=== PATIENT | male | born 1975 | race Hispanic/Latino ===

== ENCOUNTER 2018-05-23 20:51 | Emergency (ER) | payer SELFPAY ==
--- NOTE | 2018-05-23 21:24 | ER ---
Nurse's Notes [facility] Name: Randal Chavez Age: 43 yrs Sex: Male : 1975 Arrival Date: 05/23/2018 Time: 20:52 Bed 15 Private MD: Diagnosis: Low back pain Presentation: 05/23 21:03 Presenting complaint: Patient states: Back pain for the past 3 days. Patient denies any aj1 injury or strenuous activity in the past month. Denies dysuria, urinary frequency. Transition of care: patient was not received from another setting of care. Onset of symptoms was May 20, 2018. Risk Assessment: Do you want to hurt yourself or someone else? Patient reports no desire to harm self or others. Initial Sepsis Screen: Does the patient meet any 2 criteria? No. Patient's initial sepsis screen is negative. Does the patient have a suspected source of infection? No. Patient's initial sepsis screen is negative. Care prior to arrival: None. 21:03 Method Of Arrival: Ambulatory aj 21:03 Acuity: REAL 4 aj1 Triage Assessment: 21:05 General: Appears in no apparent distress. comfortable, Behavior is calm, cooperative, aj1 appropriate for age. Pain: Complains of pain in back Pain currently is 6 out of 10 on a pain scale. Neuro: Level of Consciousness is awake, alert, obeys commands. Cardiovascular: Patient's skin is warm and dry. Respiratory: Airway is patent Respiratory effort is even, unlabored, Respiratory pattern is regular, symmetrical. Musculoskeletal: Range of motion: intact in all extremities. Historical: - Allergies: 21:05 No Known Allergies; aj1 - Home Meds: 21:05 None [Active]; aj1 - PMHx: 21:05 Hypertension; Asthma; aj1 - PSHx: 21:05 None; aj1 - Immunization history:: Flu vaccine is not up to date. - Social history:: Smoking status: Patient/guardian denies using tobacco, Patient/guardian denies using alcohol, street drugs, The patient lives with family. - Ebola Screening: : Patient denies travel to an Ebola-affected area in the 21 days before illness onset. - Family history:: not pertinent. - Hospitalizations: : No recent hospitalization is reported. Screenin:25 Abuse screen: Denies threats or abuse. Nutritional screening: No deficits noted. jb4 Tuberculosis screening: No symptoms or risk factors identified. Fall Risk None identified. Assessment: 21:25 General: Appears in no apparent distress. uncomfortable, Behavior is calm, cooperative, jb4 appropriate for age. Pain: Complains of pain in right low back Pain does not radiate. Pain currently is 8 out of 10 on a pain scale. Quality of pain is described as burning, stabbing, Pain began 2-3 days ago. Neuro: Level of Consciousness is awake, alert, obeys commands, Oriented to person, place, time, situation. Cardiovascular: Patient's skin is warm and dry. Respiratory: Airway is patent Respiratory effort is even, unlabored, Respiratory pattern is regular, symmetrical. GI: No signs and/or symptoms were reported involving the gastrointestinal system. : No signs and/or symptoms were reported regarding the genitourinary system. EENT: No signs and/or symptoms were reported regarding the EENT system. Derm: Skin is intact, Skin is pink, warm \T\ dry. Musculoskeletal: Circulation, motion, and sensation intact. Vital Signs: 21:05 BP 189 / 100; Pulse 90; Resp 18; Temp 98.0; Pulse Ox 97% on R/A; Weight 120.2 kg (R); aj1 Height 5 ft. 7 in. (170.18 cm) (R); Pain 6/10; 21:47 BP 176 / 100; Pulse 86; Resp 18; Pulse Ox 100% on R/A; jb4 21:05 Body Mass Index 41.50 (120.20 kg, 170.18 cm) aj1 ED Course: 20:52 Patient arrived in ED. al2 21:05 Triage completed. aj1 21:05 Arm band placed on Patient placed in an exam room. aj1 21:05 Patient has correct armband on for positive identification. Bed in low position. Call jb4 light in reach. Side rails up X 1. Pulse ox on. NIBP on. 21:10 Batsheva Low MD is Attending Physician. ma2 21:18 Fabio Wei, RAYA is Primary Nurse. jb4 21:48 No provider procedures requiring assistance completed. Patient did not have IV access jb4 during this emergency room visit. Administered Medications: 21:49 Drug: TORadol 60 mg Route: IM; Site: left gluteus; jb4 21:51 Follow up: Response: No adverse reaction jb4 21:50 Drug: Valium 10 mg {Note: Given IM in right glutues per providers orders..} Route: IVP; jb4 Site: Other; 21:50 Follow up: Response: No adverse reaction jb4 Outcome: 21:23 Discharge ordered by MD. sheikh 21:48 Discharged to home ambulatory. jb4 21:48 Condition: stable 21:48 Discharge instructions given to patient, Instructed on discharge instructions, follow up and referral plans. medication usage, Demonstrated understanding of instructions, follow-up care, medications, Prescriptions given X 2. 21:51 Patient left the ED. jb4 Signatures: Aster Pittman RN RN aj1 Fabio Wei RN RN jb4 Simran Erazo2 Batsheva Low MD MD ma2 Corrections: (The following items were deleted from the chart) 21:50 21:49 TORadol 60 mg IM in left vastus lateralis jb4 jb4
--- NOTE | 2018-05-23 21:24 | EDPHYS ---
Physician Documentation [facility] Name: Randal Chavez Age: 43 yrs Sex: Male : 1975 Arrival Date: 05/23/2018 Time: 20:52 Bed 15 Private MD: ED Physician Batsheva Low HPI: 05/23 21:20 This 43 yrs old Male presents to ER via Ambulatory with complaints of Back ma2 Pain. 21:20 The patient presents with pain that is acute. The symptoms are located in the low back. ma2 Onset: The symptoms/episode began/occurred gradually, 3 day(s) ago. The pain does not radiate. Associated signs and symptoms: Pertinent negatives: abdominal pain, constipation, dysuria, fever, hematuria, incontinence, numbness, tingling, urinary retention, vomiting, weakness. Modifying factors: The patient symptoms are alleviated by nothing, the patient symptoms are aggravated by coughing, movement. Severity of symptoms: At their worst the symptoms were moderate, in the emergency department the symptoms are unchanged. The patient has not experienced similar symptoms in the past. no trauma no fever or weakness or urinary incontinence . Historical: - Allergies: 21:05 No Known Allergies; aj1 - Home Meds: 21:05 None [Active]; aj1 - PMHx: 21:05 Hypertension; Asthma; aj1 - PSHx: 21:05 None; aj1 - Immunization history:: Flu vaccine is not up to date. - Social history:: Smoking status: Patient/guardian denies using tobacco, Patient/guardian denies using alcohol, street drugs, The patient lives with family. - Ebola Screening: : Patient denies travel to an Ebola-affected area in the 21 days before illness onset. - Family history:: not pertinent. - Hospitalizations: : No recent hospitalization is reported. ROS: 21:20 Constitutional: Negative for fever, chills, and weight loss, Cardiovascular: Negative ma2 for chest pain, palpitations, and edema, Respiratory: Negative for shortness of breath, cough, wheezing, and pleuritic chest pain, Abdomen/GI: Negative for abdominal pain, nausea, diarrhea, and constipation, Back: Negative for injury and pain, MS/Extremity: Negative for injury and deformity. 21:20 Back: Positive for pain with movement, Negative for injury or acute deformity, decreased range of motion, pain at rest, radiated pain, acute changes. 21:20 All other systems are negative. Exam: 21:20 Constitutional: This is a well developed, well nourished patient who is awake, alert, ma2 and in no acute distress. Chest/axilla: Normal chest wall appearance and motion. Nontender with no deformity. No lesions are appreciated. Cardiovascular: Regular rate and rhythm with a normal S1 and S2. No gallops, murmurs, or rubs. Normal PMI, no JVD. No pulse deficits. Respiratory: Lungs have equal breath sounds bilaterally, clear to auscultation and percussion. No rales, rhonchi or wheezes noted. No increased work of breathing, no retractions or nasal flaring. Abdomen/GI: Soft, non-tender, with normal bowel sounds. No distension or tympany. No guarding or rebound. No evidence of tenderness throughout. Back: No spinal tenderness. No costovertebral tenderness. Full range of motion. Skin: Warm, dry with normal turgor. Normal color with no rashes, no lesions, and no evidence of cellulitis. MS/ Extremity: Pulses equal, no cyanosis. Neurovascular intact. Full, normal range of motion. Neuro: Awake and alert, GCS 15, oriented to person, place, time, and situation. Cranial nerves II-XII grossly intact. Motor strength 5/5 in all extremities. Sensory grossly intact. Cerebellar exam normal. Normal gait. Vital Signs: 21:05 BP 189 / 100; Pulse 90; Resp 18; Temp 98.0; Pulse Ox 97% on R/A; Weight 120.2 kg (R); aj1 Height 5 ft. 7 in. (170.18 cm) (R); Pain 6/10; 21:47 BP 176 / 100; Pulse 86; Resp 18; Pulse Ox 100% on R/A; jb4 21:05 Body Mass Index 41.50 (120.20 kg, 170.18 cm) aj1 MDM: 21:10 Patient medically screened. ma2 21:20 Differential diagnosis: Ligament Injury Osteoarthritis sprain, disc prolapse. Data ma2 reviewed: vital signs, nurses notes. Response to treatment: the patient's symptoms have markedly improved after treatment. Administered Medications: 21:49 Drug: TORadol 60 mg Route: IM; Site: left gluteus; jb4 21:51 Follow up: Response: No adverse reaction 4 21:50 Drug: Valium 10 mg {Note: Given IM in right glutues per providers orders..} Route: IVP; jb4 Site: Other; 21:50 Follow up: Response: No adverse reaction 4 Disposition: 05/23/18 21:23 Discharged to Home. Impression: Low back pain. - Condition is Stable. - Discharge Instructions: Back Pain, Adult. - Prescriptions for Tylenol- Codeine #3 300-30 mg Oral Tablet - take 2 tablet by ORAL route every 6 hours As needed; 30 tablet. Cyclobenzaprine 10 mg Oral Tablet - take 1 tablet by ORAL route every 8 hours As needed; 30 tablet. - Medication Reconciliation Form, Thank You Letter, Antibiotic Education, Prescription Opioid Use form. - Follow up: Private Physician; When: Tomorrow; Reason: Continuance of care. Signatures: Aster Pittman RN RN aj1 Fabio Wei RN RN jb4 Batsheva Low MD MD ma2 Corrections: (The following items were deleted from the chart) 21:51 21:23 05/23/2018 21:23 Discharged to Home. Impression: Low back pain. Condition is jb4 Stable. Forms are Medication Reconciliation Form, Thank You Letter, Antibiotic Education, Prescription Opioid Use. Follow up: Private Physician; When: Tomorrow; Reason: Continuance of care. [email or web address]
[2018-05-23] MEDS ORDERED: DIAZEPAM 10 MG/2 ML INJ SYRINGE ONE (21:46)
[2018-05-23] MEDS ORDERED: KETOROLAC 30 MG/ML INJ ONE (21:46)
[2018-05-24 00:31] VITALS: TEMP 98
[2018-05-24 00:33] VITALS: BP 176/100; O2SAT 100
== END 2018-05-23 21:51 | disposition home or self-care (01) ==
LOC: ER 20:51
DX: M54.5 Low back pain (principal); I10 Essential (primary) hypertension
CPT/HCPCS: 96372; 96374; 99283; J3360